=== PATIENT | female | born 1980 | race Caucasian/White ===

== ENCOUNTER → 2020-06-16 11:42 | Outpatient (CLI) | payer OTHER, MEDICAID, SELFPAY ==
--- NOTE | 2020-06-16 | DI.RAD.S_ITS ---
PROCEDURE: XR HAND LT MIN 3V INDICATIONS: LEFT HAND DOG BITE TECHNIQUE: 3 views of the hand(s) acquired. COMPARISON: None. FINDINGS: Bones: No fractures or dislocations. Carpal bones are normally aligned. No suspicious bony lesions. Soft tissues: No suspicious soft tissue calcifications. Focal soft tissue swelling is noted in the dorsal aspect of the head. IMPRESSION: No bony injuries or radiopaque foreign bodies. Dictated by: Cheli Austin M.D. on 06/16/2020 at 13:41 Approved by: Cheli Austin M.D. on 06/16/2020 at 13:41
== END ==
PROVIDERS: Family Provider Family Medicine; PCP Family Medicine; Referring Provider Family Medicine; Visit Provider Family Medicine
DX: S61.452A Open bite of left hand, initial encounter (principal); W54.0XXA Bitten by dog, initial encounter
CPT/HCPCS: 73130

== ENCOUNTER → 2020-11-27 15:09 | Outpatient (CLI) | payer OTHER, MEDICAID, SELFPAY ==
--- NOTE | 2020-11-27 | DI.RAD.S_ITS ---
PROCEDURE: XR CHEST 2V INDICATIONS: LEFT RIB PAIN TECHNIQUE: 2 views of the chest were acquired. COMPARISON: None. FINDINGS: Surgical changes and devices: None. Lungs and pleura: Lungs are clear. No pleural effusions or pneumothorax. Mediastinum: Mediastinal contours are normal. Heart size is normal. Bones and chest wall: No suspicious bony abnormalities. No left rib fracture identified although dedicated rib series could be performed as clinically warranted. Soft tissues appear unremarkable. IMPRESSION: Negative examination as above Dictated by: Gabriel Fulton M.D. on 11/27/2020 at 16:32 Approved by: Gabriel Fulton M.D. on 11/27/2020 at 16:33
== END ==
PROVIDERS: Family Provider Family Medicine; PCP Family Medicine; Referring Provider Student in an Organized Health Care Education/Training Program; Visit Provider Student in an Organized Health Care Education/Training Program
DX: R07.81 Pleurodynia (principal)
CPT/HCPCS: 71046

== ENCOUNTER → 2020-12-20 08:09 | Outpatient (CLI) | payer OTHER, MEDICAID, SELFPAY ==
--- NOTE | 2020-12-20 08:10 | DI.MG.S_ITS ---
BILATERAL DIGITAL SCREENING MAMMOGRAM 3D/2D WITH CAD: 12/20/2020 CLINICAL: Routine screening. Baseline exam. Family history of breast cancer. No prior exams were available for comparison. The tissue of both breasts is heterogeneously dense. This may lower the sensitivity of mammography. Current study was also evaluated with a Computer Aided Detection (CAD) system. No significant masses, calcifications, or other findings are seen in either breast. IMPRESSION: NEGATIVE There is no mammographic evidence of malignancy. A 1 year screening mammogram is recommended. This exam was interpreted at Station ID: [id number]. NOTE: For mammograms, a report in lay terms will be sent to the patient. Approximately 15% of breast malignancies will not be visualized mammographically. In the management of a palpable breast mass, a negative mammogram must not discourage biopsy of a clinically suspicious lesion. Electronically Signed By: Connor [email or web address]:12/22/2020 07:48:56 letter sent: Normal Exam ACR BI-RADS Category 1: Negative [id number]
== END ==
PROVIDERS: Family Provider Family Medicine; PCP Family Medicine; Referring Provider Family Medicine; Visit Provider Family Medicine
DX: Z12.31 Encounter for screening mammogram for malignant neoplasm of breast (principal); Z80.3 Family history of malignant neoplasm of breast
CPT/HCPCS: 77063; 77067

== ENCOUNTER → 2024-03-02 09:17 | Outpatient (CLI) | payer OTHER, MEDICAID, SELFPAY ==
--- NOTE | 2024-03-02 | DI.RAD.S_ITS ---
PROCEDURE: XR WRIST RT 2V INDICATIONS: RIGHT WRIST PAIN TECHNIQUE: 2 views of the wrist were acquired. COMPARISON: None. FINDINGS: Bones: Remote ORIF of the scaphoid with a cannulated screw. No evidence of hardware failure or loosening. Limited imaging demonstrates no acute bony abnormality. No fracture or dislocation. There is a degree of radiocarpal joint degenerative change and possible scapholunate widening. suspicious bony lesions. Soft tissues: No suspicious soft tissue calcifications. IMPRESSION: Remote ORIF of the scaphoid with no evidence of complication. Degenerative change at the radiocarpal joint. Question scapholunate widening suggesting possible scapholunate ligamentous disruption. This is not definite. No acute bony abnormality Dictated by: Luis Hawk M.D. on 03/02/2024 at 20:34 Approved by: Luis Hawk M.D. on 03/02/2024 at 20:36
== END ==
PROVIDERS: Family Provider Family Medicine; PCP Family Medicine; Referring Provider Family Medicine; Visit Provider Family Medicine
DX: M25.531 Pain in right wrist (principal); Z87.81 Personal history of (healed) traumatic fracture
CPT/HCPCS: 73100

== ENCOUNTER → 2024-08-06 07:43 | Outpatient (CLI) | payer OTHER, MEDICAID, SELFPAY ==
--- NOTE | 2024-08-06 07:46 | DI.MG.S_ITS ---
BILATERAL DIGITAL SCREENING MAMMOGRAM 3D/2D WITH CAD: 08/06/2024 CLINICAL: Routine screening. Family history of breast cancer. Comparison is made to exam dated: 12/20/2020 mammogram - [facility]. The breasts are heterogeneously dense, which may obscure small masses (category c / 51-75% glandular tissue). Current study was also evaluated with a Computer Aided Detection (CAD) system. No significant masses, calcifications, or other findings are seen in either breast. There has been no significant interval change. IMPRESSION: NEGATIVE There is no mammographic evidence of malignancy. A 1 year screening mammogram is recommended. Based on the Tyrer Cuzick model (a risk assessment model) the patient's lifetime risk is 16.4% and her 10 year risk is 3.2%. According to the ACR, ACS, and NCCN guidelines, an annual breast MRI exam along with mammogram is recommended if the patient's lifetime risk is 20% or greater. This exam was interpreted at Station ID: [id number]. NOTE: For mammograms, a report in lay terms will be sent to the patient. Approximately 15% of breast malignancies will not be visualized mammographically. In the management of a palpable breast mass, a negative mammogram must not discourage biopsy of a clinically suspicious lesion. Electronically Signed By: Elisha Bermudez M.D., Ph.D. [email or web address]:08/06/2024 15:46:02 letter sent: Normal Exam ACR BI-RADS Category 1: Negative
== END ==
PROVIDERS: Family Provider Family Medicine; PCP Family Medicine; Referring Provider Family Medicine; Visit Provider Family Medicine
DX: Z12.31 Encounter for screening mammogram for malignant neoplasm of breast (principal); Z80.3 Family history of malignant neoplasm of breast; R92.333 Mammographic heterogeneous density, bilateral breasts
CPT/HCPCS: 77063; 77067

== ENCOUNTER 2024-08-24 11:37 | Day surgery (SDC) | payer OTHER, SELFPAY ==
--- NOTE | 2024-08-24 | PATH_ITS ---
[facility] Accession Number: [id number] No. of containers..01 Tissue . 01 Material submitted: . rectum - RECTAL POLYP . 01 Diagnosis: A. RECTUM, POLYPECTOMY: Hyperplastic polyp. [facility] 08/28/2024 1427 Local . 01 Electronically signed: . Shilpi Sharpe MD, Pathologist NPI- [id number] . 01 Gross description: . Received in formalin labeled with two patient identifiers and rectal polyp, and consists of a 0.6 x 0.4 x 0.1 cm dixon-brown irregular soft tissue which is entirely submitted in cassette A1. ([id number]) /BRINDA 08/26/2024 0703 Local . 01 Pathologist provided ICD-10: Z12.11, Z80.0 . 01 CPT . 527661 Specimen Comment: A courtesy copy of this report has been sent to [facility]ology Performed at: [address] [address], [place], [place] [id number] MD Raymond Gambino MD Phone: [phone]
[2024-08-24 11:58] VITALS: BP 132/81; PULSE 98; RESP 16; TEMP 36.2; O2SAT 98
--- NOTE | 2024-08-24 12:20 | P.HP_ITS ---
History of Present Illness History of Present Illness Date Patient Seen: 08/24/24 Time Patient Seen: 12:20 Chief complaint: Colonoscopy Narrative: 44-year-old white female presents for her 2nd colonoscopy. Family history of colon cancer at a young age in her father [facility] Medical History (Updated 08/24/24 @ 12:21 by Rudolph Lo MD) Family history of colon cancer Social History Smoking Status: Never smoker alcohol intake: current Meds Home Medications and Allergies Home Medications Medication Instructions Recorded Confirmed Type peg 3350-electrolytes 236 240 ml PO Q10M #4,000 mL 07/23/24 Rx gram-22.74 gram-6.74 gram-5.86 gram solution (Golytely) Review of Systems Review of Systems ROS: Yes All systems reviewed with the patient and are negative except as otherwise documented Exam Vital Signs (past 8 hours): - 08/24/24 11:58 Temperature 97.2 F L Pulse Rate 98 H Respiratory Rate 16 Blood Pressure 132/81 Pulse Oximetry 98 Oxygen Delivery Method Room Air Oxygen Delivery Method Room Air Narrative Exam Narrative: Gen: NAD, sitting comfortably in bed, appears well HEENT: Sclera are anicteric, head is normocephalic and atraumatic, trachea is midline. CV: RRR, no JVD Resp: clear to auscultation bilaterally, equal chest wall movement bilaterally Abd: soft, nontender, normoactive bowel sounds Ext: no edema, full range of motion Neuro: Cranial nerves II-XII grossly intact, no focal deficits Skin: No erythema or ecchymosis Assessment & Plan Assessment and plan (1) Family history of colon cancer: Status: Acute Assessment & Plan narrative: Patient presents for colonoscopy Risks, benefits, alternatives to colonoscopy explained, including but not limited to bowel perforation or other serious complication requiring surgery at less than 1 in 5000 colonoscopies, abdominal pain, cramping or bleeding and less than 1% of colonoscopies, and the chances that we find a diagnosis that would require further intervention of about 2%. Patient agrees to proceed. Time-Based Coding :: [TOTAL MINUTES] spent with patient and on the chart (including review of chart, obtaining history, exam, reviewing outside data, placing orders, documenting exam and treatment plan, and counseling patient) on [DATE].
--- NOTE | 2024-08-24 12:48 | PM.OP.COLON ---
Operative Date/Time/Diagnoses Date of procedure: 08/24/24 Time of procedure: 12:48 Pre-op diagnosis: Family history of colon cancer Post-op diagnosis: other (Benign-appearing polyp in the rectum) Procedure & Clinicians Study performed: Colonoscopy with snare polypectomy Same procedure as scheduled: Yes Indications: Family history Surgeon: Rudolph Lo Procedure Notes SCOAP/Timeout: Perform Procedure in detail: Time-out was performed. Mac was induced. Patient was placed in left lateral decubitus position. The perineum was inspected without any gross abnormality. Lubricated pediatric colonoscope was inserted and advanced to the cecum. The terminal ileum was intubated. The colonoscope was withdrawn slowly inspecting the circumference of the colon. Very small polyps may have been missed, prep quality was adequate. There was a small, benign-appearing, likely hyperplastic polyp in the rectum. Removed with cold snare. Completely removed and retrieved. Retroflexed view of the rectum showed small, non prolapsed nonbleeding internal hemorrhoids. The scope was withdrawn the patient was taken to PACU in good condition. Scope withdrawal time: 6 Sedation minutes: 15 Findings: polyp(s) Specimen(s): other (Rectal polyp) Complications: none Impression: Benign-appearing, likely hyperplastic polyp Post-procedure Recommendations: Colonoscopy in 5 years (Next colonoscopy in 5-7 years) Plan for aftercare: Home Follow up: as needed Disposition: PACU
[2024-08-24 12:50] VITALS: BP 107/65; PULSE 78; RESP 17; TEMP 36.4; O2SAT 98
[2024-08-24 12:55] VITALS: BP 91/47; PULSE 82; RESP 20; O2SAT 98
[2024-08-24 13:10] VITALS: BP 123/82; PULSE 85; RESP 14; O2SAT 98
== END 2024-08-24 13:23 | disposition home or self-care (01) ==
PROVIDERS: Surgery; Family Provider Family Medicine; PCP Family Medicine; Referring Provider Surgery; Visit Provider Surgery
PROC: 0DJD8ZZ Inspection of Lower Intestinal Tract, Via Natural or Artificial Opening Endoscopic (ICD-10-PCS; CPT 45378; principal; 2024-08-24 12:45)
DX: Z12.11 Encounter for screening for malignant neoplasm of colon (principal); Z80.0 Family history of malignant neoplasm of digestive organs; K64.8 Other hemorrhoids; K62.1 Rectal polyp
CPT/HCPCS: 45385; J2704